=== PATIENT | female | born 1975 | race Caucasian/White ===

== ENCOUNTER 2017-05-31 17:51 | Emergency (ER) | payer MEDICAID, OTHER ==
[2017-05-31 18:02] VITALS: BP 127/83
[2017-05-31 18:38] LABS: CHLORIDE,CL 105 mmol/L (101-111); SODIUM,NA 136 mmol/L (135-145)
--- NOTE | 2017-05-31 19:30 | EDM.PDOC ---
ED HPI GENERAL MEDICAL PROBLEM - General Chief Complaint: Chest Pain Stated Complaint: BREATHING TROUBLES, [id number] Time Seen by Provider: 05/31/17 18:50 Source of Information: Reports: Patient History Limitations: Reports: No Limitations - History of Present Illness INITIAL COMMENTS - FREE TEXT/NARRATIVE: ED with c/o fever, feeling like sand in her chest" coughing and can't bring anything up. Smoker 3-4 cigarettes per day. Sinus congestion with pressure. Blowing out bloody mucus. Throat sore today Chest Pain Score (Numeric/FACES): 4 - Related Data Allergies Allergy/AdvReac Type Severity Reaction Status Date / Time iron sucrose complex Allergy Severe Anaphylactic Verified 05/31/17 17:57 [From Venofer] Shock acetaminophen [From Midrin] Allergy Chest Verified 05/31/17 17:57 Tightness dichloralphenazone Allergy Chest Verified 05/31/17 17:57 [From Midrin] Tightness iron Allergy Anaphylactic Verified 05/31/17 17:57 Shock isometheptene mucate Allergy Chest Verified 05/31/17 17:57 [From Midrin] Tightness Sulfa (Sulfonamide Allergy Hives Verified 05/31/17 17:57 Antibiotics) Home Meds: Home Meds Citalopram Hydrobromide [Celexa] 40 mg PO DAILY #30 08/07/15 [Rx] buPROPion [Wellbutrin] 75 mg PO DAILY 03/28/16 [History] Gabapentin [Neurontin] 600 mg pe PO TID 05/31/17 [History] Past Medical History Cardiovascular History: Reports: Heart Failure Other Cardiovascular History: CHF in the past Respiratory History: Reports: None Gastrointestinal History: Reports: GERD Other OB/BYN History: 3 c-sections and a tubal ligation Musculoskeletal History: Reports: Arthritis, Back Pain, Chronic, Fracture, Fibromyalgia, Other (See Below) Other Musculoskeletal History: left ankle fracture Psychiatric History: Reports: Anxiety, Depression, Suicide Attempt - Past Surgical History Respiratory Surgical History: Reports: None GI Surgical History: Reports: Appendectomy Social & Family History - Family History Family Medical History: Noncontributory - Tobacco Use Smoking Status *Q: Current Every Day Smoker Years of Tobacco use: 29 Packs/Tins Daily: 0.3 Used Tobacco, but Quit: No Second Hand Smoke Exposure: Yes - Caffeine Use Caffeine Use: Reports: Coffee, Energy Drinks, Soda, Tea - Alcohol Use Days Per Week of Alcohol Use: 1 Number of Drinks Per Day: 1 Total Drinks Per Week: 1 - Recreational Drug Use Recreational Drug Use: No - Sexual History Sexual History: Reports: Sexually Active - Living Situation & Occupation Living situation: Reports: , with Family Occupation: Employed ED ROS GENERAL - Review of Systems Review Of Systems: ROS reveals no pertinent complaints other than HPI. ED EXAM, GENERAL - Physical Exam Exam: See Below Exam Limited By: No Limitations General Appearance: Alert, No Apparent Distress Eye Exam: Bilateral Eye: EOMI Ears: Normal External Exam Ear Exam: Bilateral Ear: TM Dull Nose: Normal Inspection Throat/Mouth: No: Normal Oropharynx (mild inflammation, no exudate) Head: Atraumatic, Normocephalic, Sinus Tenderness (frontal, maxillay and ethmoid ) Neck: Normal Inspection, Full Range of Motion, Lymphadenopathy (L), Lymphadenopathy (R) Respiratory/Chest: No Respiratory Distress, Lungs Clear, Normal Breath Sounds. No: Respiratory Distress Cardiovascular: Normal Peripheral Pulses, Regular Rate, Rhythm GI/Abdominal: Normal Bowel Sounds Neurological: Alert, Oriented, Normal Cognition Psychiatric: Normal Affect Skin Exam: Warm, Dry, Intact, Normal Color Course - Vital Signs Last Recorded V/S: Last Vital Signs Temp 97.8 F 05/31/17 17:59 Pulse 86 05/31/17 17:59 Resp 16 05/31/17 17:59 BP 127/83 05/31/17 17:59 Pulse Ox 99 05/31/17 17:59 - Orders/Labs/Meds Orders: Active Orders 24 hr Category Date Time Status EKG 12 Lead [EKG Documentation Completion] [RC] URGENT Care 05/31/17 18:14 Active CULTURE STREP A CONFIRMATION [RM] Stat Lab 05/31/17 19:10 Results STREP SCRN A RAPID W CULT CONF [] Stat Lab 05/31/17 19:10 Results Labs: Laboratory Tests 05/31/17 05/31/17 Range/Units 18:13 18:13 WBC 8.7 (5.0-10.0) 10^3/uL RBC 4.32 (4.2-5.4) 10^6/uL Hgb 12.2 (12.0-16.0) g/dL Hct 37.0 (37.0-47.0) % MCV 85.6 D (80-100) fL MCH 28.2 (27.0-34.0) pg MCHC 33.0 (33.0-35.0) g/dL Plt Count 350 (150-450) 10^3/uL Neut % (Auto) 68.7 (42.2-75.2) % Lymph % (Auto) 21.5 (20.5-50.1) % Russell % (Auto) 8.0 (2-8) % Eos % (Auto) 1.5 (1.0-3.0) % Baso % (Auto) 0.3 (0.0-1.0) % Sodium 136 (135-145) mmol/L Potassium 3.4 L (3.6-5.0) mmol/L Chloride 105 (101-111) mmol/L Carbon Dioxide 23.0 (21.0-31.0) mmol/L Anion Gap 11.4 BUN 11 (7-18) mg/dL Creatinine 0.9 (0.6-1.3) mg/dL Est Cr Clr Drug Dosing 77.01 mL/min Estimated GFR (MDRD) > 60 BUN/Creatinine Ratio 12.22 Glucose 92 (74-105) mg/dL Calcium 8.3 L (8.4-10.2) mg/dl Total Bilirubin 0.5 (0.2-1.0) mg/dL AST 28 (10-42) IU/L ALT 25 (10-60) IU/L Alkaline Phosphatase 71 (42-121) IU/L Troponin I < 0.02 (0.00-0.02) ng/ml Total Protein 7.6 (6.7-8.2) g/dl Albumin 3.9 (3.2-5.5) g/dl Globulin 3.7 Albumin/Globulin Ratio 1.05 - Radiology Interpretation Free Text/Narrative:: CXR normal Departure - Departure Time of Disposition: 19:29 Disposition: Home, Self-Care 01 Condition: Good Clinical Impression: Bronchitis, Tobacco dependence Sinusitis Qualifiers: Sinusitis location: unspecified location Chronicity: acute Recurrence: non- recurrent Qualified Code(s): J01.90 - Acute sinusitis, unspecified - Discharge Information Instructions: Sinusitis, Adult, [id number] Additional Instructions: muccinex per label to aid in congestion albuterol inhaler 2 puffs every 4 hours as needed for cough/wheezing augmentin 875 one twice daily for 7 days follow in clinic 1 week if not improving urgent follow up if symptoms worsen with breathing difficulty - My Orders Last 24 Hours: My Active Orders 05/31/17 19:10 CULTURE STREP A CONFIRMATION [RM] Stat STREP SCRN A RAPID W CULT CONF [] Stat - Assessment/Plan Last 24 Hours: My Active Orders 05/31/17 19:10 CULTURE STREP A CONFIRMATION [] Stat STREP SCRN A RAPID W CULT CONF [] Stat
== END 2017-05-31 19:42 | disposition home or self-care (01) ==
LOC: DL.ED 17:51
DX: J40 Bronchitis, not specified as acute or chronic (principal); J01.90 Acute sinusitis, unspecified; F17.210 Nicotine dependence, cigarettes, uncomplicated; Z88.8 Allergy status to other drugs, medicaments and biological substances; Z88.2 Allergy status to sulfonamides; Z79.899 Other long term (current) drug therapy
CPT/HCPCS: 36415; 71045; 80053; 84484; 85025; 87081; 87430; 93005; 99284

== ENCOUNTER 2017-06-13 15:27 | Emergency (ER) | payer MEDICAID ==
[2017-06-13 16:17] VITALS: BP 152/87
[2017-06-13] MEDS ORDERED: Sodium Chloride 0.9% 10 ML Syringe FLUSH PRN (16:33)
[2017-06-13] MEDS ORDERED: Sodium Chloride 0.9% 1,000 ML IV ONE (16:34)
[2017-06-13 17:06] LABS: CHLORIDE,CL 105 mmol/L (101-111); SODIUM,NA 139 mmol/L (135-145)
[2017-06-13] MEDS ORDERED: Iopamidol 612 MG/ML 100 ML Bottle IVPUSH ONE (17:18)
[2017-06-13] MEDS ORDERED: Iopamidol 612 MG/ML 75 ML Bottle IVPUSH ONE (18:02)
[2017-06-13] MEDS ORDERED: HYDROmorphone 1 MG/ML Syringe IVPUSH ONE (18:49)
[2017-06-13] MEDS ORDERED: GI Cocktail Oral Solution 30 ML PO ONE (19:19)
[2017-06-13] MEDS ORDERED: Pantoprazole 40 MG Vial IVPUSH ONE (19:19)
--- NOTE | 2017-06-14 12:37 | EDM.PDOC ---
Scribed by Mireille Dai 06/13/17 [id number] for Debbi De Jesus NP ED HPI GENERAL MEDICAL PROBLEM - General Chief Complaint: Gastrointestinal Problem Stated Complaint: [id number] shooting stabbing stomach pain cant eat Time Seen by Provider: 06/13/17 16:19 Source of Information: Reports: Patient History Limitations: Reports: No Limitations - History of Present Illness INITIAL COMMENTS - FREE TEXT/NARRATIVE: Afia is a 42 yo female who presents to the ED today due to a two week history of lower abd pain. She reports her pain has been constant to her bilateral lower abd and progressively worsening. Her pain gets worse when she eats to the point that she has to vomit after eating to relieve some of the pain. Describes the pain as cramping and aching pain. She reports constant nausea. Has had diarrhea off and on. Relates that she has been having a headache and chills. Denies shortness of breath or chest pain. She does relate that she has had dysuria. Denies flank pain or vaginal discharge. Reports last BM was yesterday. 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: NSAIDS (Has been taking ibuprofen three times a day) - Related Data Allergies Allergy/AdvReac Type Severity Reaction Status Date / Time iron sucrose complex Allergy Severe Anaphylactic Verified 06/13/17 16:17 [From Venofer] Shock acetaminophen [From Midrin] Allergy Chest Verified 06/13/17 16:17 Tightness dichloralphenazone Allergy Chest Verified 06/13/17 16:17 [From Midrin] Tightness iron Allergy Anaphylactic Verified 06/13/17 16:17 Shock isometheptene mucate Allergy Chest Verified 06/13/17 16:17 [From Midrin] Tightness Sulfa (Sulfonamide Allergy Hives Verified 06/13/17 16:17 Antibiotics) Home Meds: Home Meds Citalopram Hydrobromide [Celexa] 40 mg PO DAILY #30 08/07/15 [Rx] buPROPion [Wellbutrin] 75 mg PO DAILY 03/28/16 [History] Gabapentin [Neurontin] 600 mg pe PO TID 05/31/17 [History] Past Medical History Cardiovascular History: Reports: Heart Failure Other Cardiovascular History: CHF in the past Respiratory History: Reports: None Gastrointestinal History: Reports: GERD Other OB/BYN History: 3 c-sections and a tubal ligation Musculoskeletal History: Reports: Arthritis, Back Pain, Chronic, Fracture, Fibromyalgia, Other (See Below) Other Musculoskeletal History: left ankle fracture Psychiatric History: Reports: Anxiety, Depression, Suicide Attempt - Past Surgical History Respiratory Surgical History: Reports: None GI Surgical History: Reports: Appendectomy Social & Family History - Family History Family Medical History: Noncontributory - Tobacco Use Smoking Status *Q: Current Every Day Smoker Years of Tobacco use: 29 Packs/Tins Daily: 0.3 Used Tobacco, but Quit: No Second Hand Smoke Exposure: Yes - Caffeine Use Caffeine Use: Reports: Coffee, Energy Drinks, Soda, Tea - Alcohol Use Days Per Week of Alcohol Use: 1 Number of Drinks Per Day: 1 Total Drinks Per Week: 1 - Recreational Drug Use Recreational Drug Use: No - Sexual History Sexual History: Reports: Sexually Active - Living Situation & Occupation Living situation: Reports: , with Family Occupation: Employed ED ROS GENERAL - Review of Systems Review Of Systems: ROS reveals no pertinent complaints other than HPI. ED EXAM, GI/ABD - Physical Exam Exam: See Below Exam Limited By: No Limitations General Appearance: Alert, Mild Distress, Obese Eyes: Bilateral: Normal Appearance Ears: Hearing Grossly Normal Nose: Normal Inspection Throat/Mouth: Normal Inspection, Normal Oropharynx Head: Atraumatic, Normocephalic Neck: Normal Inspection, Supple Respiratory/Chest: No Respiratory Distress, Lungs Clear, Normal Breath Sounds, No Accessory Muscle Use Cardiovascular: Normal Peripheral Pulses, Regular Rate, Rhythm, No Gallop, No Murmur, No Rub GI/Abdominal Exam: Normal Bowel Sounds, Soft, No Organomegaly, No Mass, Other ( Pain on palpation to bilateral lower quadrants ) (Female) Exam: Deferred Rectal (Female) Exam: Deferred Back Exam: Normal Inspection, Full Range of Motion Extremities: Normal Inspection, Normal Range of Motion Neurological: Alert, Oriented, CN II-XII Intact Psychiatric: Normal Affect, Normal Mood Skin Exam: Warm, Dry, No Rash Course - Vital Signs Last Recorded V/S: Last Vital Signs Temp 97.8 F 06/13/17 16:13 Pulse 61 06/13/17 16:13 Resp 16 06/13/17 16:13 BP 152/87 H 06/13/17 16:13 Pulse Ox 100 06/13/17 16:13 - Orders/Labs/Meds Orders: Active Orders 24 hr Category Date Time Status Peripheral IV Care [RC] . DIRECTED Care 06/13/17 16:34 Active Peripheral IV Insertion Adult [OM.PC] Stat Oth 06/13/17 16:33 Ordered Labs: Laboratory Tests 06/13/17 06/13/17 06/13/17 Range/Units 16:05 16:05 16:05 WBC (5.0-10.0) 10^3/uL RBC (4.2-5.4) 10^6/uL Hgb (12.0-16.0) g/dL Hct (37.0-47.0) % MCV (80-100) fL MCH (27.0-34.0) pg MCHC (33.0-35.0) g/dL Plt Count (150-450) 10^3/uL Neut % (Auto) (42.2-75.2) % Lymph % (Auto) (20.5-50.1) % Price % (Auto) (2-8) % Eos % (Auto) (1.0-3.0) % Baso % (Auto) (0.0-1.0) % Sodium (135-145) mmol/L Potassium (3.6-5.0) mmol/L Chloride (101-111) mmol/L Carbon Dioxide (21.0-31.0) mmol/L Anion Gap BUN (7-18) mg/dL Creatinine (0.6-1.3) mg/dL Est Cr Clr Drug Dosing mL/min Estimated GFR (MDRD) BUN/Creatinine Ratio Glucose (74-105) mg/dL Calcium (8.4-10.2) mg/dl Total Bilirubin (0.2-1.0) mg/dL AST (10-42) IU/L ALT (10-60) IU/L Alkaline Phosphatase (42-121) IU/L Total Protein (6.7-8.2) g/dl Albumin (3.2-5.5) g/dl Globulin Albumin/Globulin Ratio Amylase (28-100) U/L Lipase (22-51) U/L Urine Color Dark yellow (YELLOW) Urine Appearance Turbid (CLEAR) Urine pH 7.0 (5.0-9.0) Ur Specific B[place] 1.025 (1.005-1.030) Urine Protein 30 H (NEGATIVE) Urine Glucose (UA) Negative (NEGATIVE) Urine Ketones Negative (NEGATIVE) Urine Occult Blood Small H (NEGATIVE) Urine Nitrite Negative (NEGATIVE) Urine Bilirubin Small H (NEGATIVE) Urine Urobilinogen 0.2 (0.2-1.0) mg/dL Ur Leukocyte Esterase Negative (NEGATIVE) Urine RBC 10-20 H /HPF Urine WBC 0-5 (0-5/HPF) /HPF Ur Epithelial Cells Moderate H /HPF Amorphous Sediment Moderate H (0/HPF) /HPF Urine Bacteria Rare (0-FEW/HPF) /HPF Fine Granular Casts Few H (0/LPF) /LPF Urine Mucus Few H /LPF Urine HCG, Qual Negative Urine Opiates Screen Positive H (NEGATIVE) Ur Oxycodone Screen Positive H (NEGATIVE) Urine Methadone Screen Negative (NEGATIVE) Ur Barbiturates Screen Negative (NEGATIVE) U Tricyclic Antidepress Negative (NEGATIVE) Ur Phencyclidine Scrn Negative (NEGATIVE) Ur Amphetamine Screen Negative (NEGATIVE) U Methamphetamines Scrn Negative (NEGATIVE) Urine MDMA Screen Negative (NEGATIVE) U Benzodiazepines Scrn Negative (NEGATIVE) Urine Cocaine Screen Negative (NEGATIVE) U Marijuana (THC) Screen Negative (NEGATIVE) 06/13/17 06/13/17 Range/Units 16:41 16:41 WBC 6.6 (5.0-10.0) 10^3/uL RBC 4.08 L (4.2-5.4) 10^6/uL Hgb 11.3 L (12.0-16.0) g/dL Hct 34.6 L (37.0-47.0) % MCV 84.8 (80-100) fL MCH 27.7 (27.0-34.0) pg MCHC 32.7 L (33.0-35.0) g/dL Plt Count 366 (150-450) 10^3/uL Neut % (Auto) 54.6 (42.2-75.2) % Lymph % (Auto) 37.2 (20.5-50.1) % Price % (Auto) 6.5 (2-8) % Eos % (Auto) 1.4 (1.0-3.0) % Baso % (Auto) 0.3 (0.0-1.0) % Sodium 139 (135-145) mmol/L Potassium 3.4 L (3.6-5.0) mmol/L Chloride 105 (101-111) mmol/L Carbon Dioxide 27.0 (21.0-31.0) mmol/L Anion Gap 10.4 BUN 13 (7-18) mg/dL Creatinine 0.7 (0.6-1.3) mg/dL Est Cr Clr Drug Dosing 99.01 mL/min Estimated GFR (MDRD) > 60 BUN/Creatinine Ratio 18.57 Glucose 85 (74-105) mg/dL Calcium 8.7 (8.4-10.2) mg/dl Total Bilirubin 0.3 (0.2-1.0) mg/dL AST 15 (10-42) IU/L ALT 14 (10-60) IU/L Alkaline Phosphatase 54 (42-121) IU/L Total Protein 7.0 (6.7-8.2) g/dl Albumin 3.8 (3.2-5.5) g/dl Globulin 3.2 Albumin/Globulin Ratio 1.19 Amylase 28 (28-100) U/L Lipase 12 L (22-51) U/L Urine Color (YELLOW) Urine Appearance (CLEAR) Urine pH (5.0-9.0) Ur Specific Bally (1.005-1.030) Urine Protein (NEGATIVE) Urine Glucose (UA) (NEGATIVE) Urine Ketones (NEGATIVE) Urine Occult Blood (NEGATIVE) Urine Nitrite (NEGATIVE) Urine Bilirubin (NEGATIVE) Urine Urobilinogen (0.2-1.0) mg/dL Ur Leukocyte Esterase (NEGATIVE) Urine RBC /HPF Urine WBC (0-5/HPF) /HPF Ur Epithelial Cells /HPF Amorphous Sediment (0/HPF) /HPF Urine Bacteria (0-FEW/HPF) /HPF Fine Granular Casts (0/LPF) /LPF Urine Mucus /LPF Urine HCG, Qual Urine Opiates Screen (NEGATIVE) Ur Oxycodone Screen (NEGATIVE) Urine Methadone Screen (NEGATIVE) Ur Barbiturates Screen (NEGATIVE) U Tricyclic Antidepress (NEGATIVE) Ur Phencyclidine Scrn (NEGATIVE) Ur Amphetamine Screen (NEGATIVE) U Methamphetamines Scrn (NEGATIVE) Urine MDMA Screen (NEGATIVE) U Benzodiazepines Scrn (NEGATIVE) Urine Cocaine Screen (NEGATIVE) U Marijuana (THC) Screen (NEGATIVE) Guiac stool: NEGATIVE Meds: Medications Discontinued Medications Generic Name Dose Route Start Last Admin Trade Name Freq PRN Reason Stop Dose Admin Al Hydroxide/Mg Hydroxide 30 ml 06/13/17 19:19 06/13/17 19:24 Gi Cocktail PO 06/13/17 19:20 30 ml ONETIME ONE Administration Hydromorphone HCl 0.5 mg 06/13/17 18:49 06/13/17 19:15 Dilaudid IVPUSH 06/13/17 18:50 0.5 mg ONETIME ONE Administration Sodium Chloride 1,000 mls @ 175 mls/hr 06/13/17 16:34 06/13/17 19:26 Normal Saline IV 06/13/17 22:16 999 mls/hr .BOLUS ONE Infusion Iopamidol 100 ml 06/13/17 17:18 Isovue-300 (61%) IVPUSH 06/13/17 17:19 ONETIME ONE Iopamidol 75 ml 06/13/17 18:02 06/13/17 18:03 Isovue-300 (61%) IVPUSH 06/13/17 18:03 75 ml ONETIME ONE Administration Pantoprazole Sodium 40 mg 06/13/17 19:19 06/13/17 19:24 Protonix Iv IVPUSH 06/13/17 19:20 40 mg ONETIME ONE Administration Sodium Chloride 10 ml 06/13/17 16:33 06/13/17 16:52 Saline Flush FLUSH 10 ml ASDIRECTED PRN Administration Keep Vein Open Departure - Departure Time of Disposition: 19:18 Disposition: Admitted As Inpatient 67 Condition: Fair Clinical Impression: Vomiting, Abdominal pain, Peptic ulcer - Discharge Information Instructions: Peptic Ulcer, [id number], Nausea and Vomiting, Adult, Easy-to- Read Referrals: PCP,Unobtain [Ordering Only Provider] - Forms: ED Department Discharge Additional Instructions: Drink plenty of water RX: Pepcid 40mg orally daily at bedtime. Follow up with your primary care facility for a referral to Gastroenterology - My Orders Last 24 Hours: My Active Orders 06/13/17 16:33 Peripheral IV Insertion Adult [OM.PC] Stat 06/13/17 16:34 Peripheral IV Care [RC] . DIRECTED - Assessment/Plan Last 24 Hours: My Active Orders 06/13/17 16:33 Peripheral IV Insertion Adult [OM.PC] Stat 06/13/17 16:34 Peripheral IV Care [RC] . DIRECTED I have read and agree with the documentation that has been completed regarding this visit. By signing this record, I attest that the documentation was completed in my physical presence and is an accurate record of the encounter.
== END 2017-06-13 19:55 | disposition critical access hospital (66) ==
LOC: DL.ED 15:27
DX: K27.9 Peptic ulcer, site unspecified, unspecified as acute or chronic, without hemorrhage or perforation (principal); I50.9 Heart failure, unspecified; F17.210 Nicotine dependence, cigarettes, uncomplicated; Z88.8 Allergy status to other drugs, medicaments and biological substances; Z88.2 Allergy status to sulfonamides; Z79.899 Other long term (current) drug therapy
CPT/HCPCS: 36415; 74177; 80053; 80305; 81001; 81025; 82150; 82272; 83690; 85025; 96361; 96374; 96375; 99284; A9270-GY; C9113; J1170; J7030; J7050; Q9967

== ENCOUNTER 2017-10-02 21:44 | Emergency (ER) | payer MEDICAID ==
[2017-10-02] MEDS ORDERED: Cyclobenzaprine 10 MG Tab PO ONE (21:45)
[2017-10-02] MEDS ORDERED: traMADol 50 MG Tab PO ONE (21:45)
[2017-10-02 22:43] LABS: CHLORIDE,CL 109 mmol/L (101-111); SODIUM,NA 138 mmol/L (135-145)
[2017-10-02] MEDS ORDERED: Ketorolac 30 MG/ML SDV IVPUSH ONE (23:04)
[2017-10-02 23:24] VITALS: BP 103/60
--- NOTE | 2017-10-02 23:30 | EDM.PDOC ---
ED HPI GENERAL MEDICAL PROBLEM - General Chief Complaint: Respiratory Problem Stated Complaint: [id number] SHARP PAIN IN CHEST TO BACK-DIFFICULTY MARISA Time Seen by Provider: 10/02/17 22:00 Source of Information: Reports: Patient History Limitations: Reports: No Limitations - History of Present Illness INITIAL COMMENTS - FREE TEXT/NARRATIVE: ED with family with c/o sharp chest pain in back radiating to chest. 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 No injury noted, pain worse with movement. Started one week ago, worsening since morning, has been trying tylenol and ibuprofen without relief. Nausea at times from pain. No fever or chills. Hurts to take deep breath. Upper Back Pain Score (Numeric/FACES): 8 - Related Data Allergies Allergy/AdvReac Type Severity Reaction Status Date / Time iron sucrose complex Allergy Severe Anaphylactic Verified 10/02/17 22:33 [From Venofer] Shock acetaminophen [From Midrin] Allergy Chest Verified 10/02/17 22:33 Tightness dichloralphenazone Allergy Chest Verified 10/02/17 22:33 [From Midrin] Tightness iron Allergy Anaphylactic Verified 10/02/17 22:33 Shock isometheptene mucate Allergy Chest Verified 10/02/17 22:33 [From Midrin] Tightness Sulfa (Sulfonamide Allergy Hives Verified 10/02/17 22:33 Antibiotics) Home Meds: Home Meds Citalopram Hydrobromide [Celexa] 40 mg PO DAILY #30 08/07/15 [Rx] buPROPion [Wellbutrin] 75 mg PO DAILY 03/28/16 [History] Gabapentin [Neurontin] 600 mg pe PO TID 05/31/17 [History] Past Medical History HEENT History: Reports: Impaired Vision Cardiovascular History: Reports: Heart Failure Other Cardiovascular History: CHF in the past Respiratory History: Reports: None Gastrointestinal History: Reports: GERD 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 Grandmother's heart stopped on mom's side. Endocrine/Metabolic: Reports: Diabetes, type II Other Endocrine/Metabolic Family History: Both mom and dad and a brother. - Tobacco Use Smoking Status *Q: Current Every Day Smoker Years of Tobacco use: 12 Packs/Tins Daily: 0.1 - Caffeine Use Caffeine Use: Reports: Coffee, Energy Drinks, Soda - Recreational Drug Use Recreational Drug Use: No - Sexual History Sexual History: Reports: Sexually Active - Living Situation & Occupation Living situation: Reports: , with Family Occupation: Employed ED ROS GENERAL - Review of Systems Review Of Systems: ROS reveals no pertinent complaints other than HPI. ED EXAM, GENERAL - Physical Exam Exam: See Below Exam Limited By: No Limitations General Appearance: Alert, Moderate Distress Eye Exam: Bilateral Eye: EOMI, PERRL Ear Exam: Bilateral Ear: TM normal Nose: Normal Inspection Throat/Mouth: Normal Inspection Head: Atraumatic, Normocephalic Neck: Normal Inspection Respiratory/Chest: No Respiratory Distress, Lungs Clear, Normal Breath Sounds Cardiovascular: Normal Peripheral Pulses, Regular Rate, Rhythm GI/Abdominal: Normal Bowel Sounds, Soft Back Exam: Muscle Spasm (below right scapula), Other (pain worse with palpation or movement) Extremities: Normal Inspection Neurological: Alert, Oriented, Normal Cognition Psychiatric: Anxious Skin Exam: Warm, Dry, Intact, Normal Color Course - Vital Signs Last Recorded V/S: Last Vital Signs Temp 98.2 F 10/02/17 23:23 Pulse 73 10/02/17 23:23 Resp 14 10/02/17 23:23 BP 103/60 10/02/17 23:23 Pulse Ox 98 10/02/17 23:23 - Orders/Labs/Meds Labs: Laboratory Tests 10/02/17 10/02/17 10/02/17 Range/Units 22:15 22:15 22:15 WBC 9.4 (5.0-10.0) 10^3/uL RBC 3.81 L (4.2-5.4) 10^6/uL Hgb 10.5 L (12.0-16.0) g/dL Hct 32.6 L (37.0-47.0) % MCV 85.6 (80-100) fL MCH 27.6 (27.0-34.0) pg MCHC 32.2 L (33.0-35.0) g/dL Plt Count 277 D (150-450) 10^3/uL Neut % (Auto) 52.3 (42.2-75.2) % Lymph % (Auto) 39.4 (20.5-50.1) % [place] % (Auto) 6.4 (2-8) % Eos % (Auto) 1.7 (1.0-3.0) % Baso % (Auto) 0.2 (0.0-1.0) % D-Dimer, Quantitative 308 (0-400) ng/mL Sodium 138 (135-145) mmol/L Potassium 3.5 L (3.6-5.0) mmol/L Chloride 109 (101-111) mmol/L Carbon Dioxide 22.0 (21.0-31.0) mmol/L Anion Gap 10.5 BUN 16 (7-18) mg/dL Creatinine 0.9 (0.6-1.3) mg/dL Est Cr Clr Drug Dosing 78.50 mL/min Estimated GFR (MDRD) > 60 BUN/Creatinine Ratio 17.77 Glucose 104 (74-105) mg/dL Calcium 8.1 L (8.4-10.2) mg/dl Total Bilirubin 0.5 (0.2-1.0) mg/dL AST 14 (10-42) IU/L ALT 15 (10-60) IU/L Alkaline Phosphatase 67 (42-121) IU/L Troponin I < 0.02 (0.00-0.02) ng/ml Total Protein 6.3 L (6.7-8.2) g/dl Albumin 3.4 (3.2-5.5) g/dl Globulin 2.9 Albumin/Globulin Ratio 1.17 Meds: Medications Discontinued Medications Generic Name Dose Route Start Last Admin Trade Name Freq PRN Reason Stop Dose Admin Cyclobenzaprine HCl Confirm 10/02/17 23:37 10/03/17 00:19 Flexeril Administered 10/02/17 23:38 Not Given Dose 10 mg .ROUTE .STK-MED ONE Hydromorphone HCl 0.5 mg 10/02/17 23:44 10/02/17 23:48 Dilaudid IVPUSH 10/02/17 23:45 0.5 mg ONETIME ONE Administration Ketorolac Tromethamine 30 mg 10/02/17 23:04 10/02/17 23:18 Toradol IVPUSH 10/02/17 23:05 30 mg ONETIME ONE Administration Orphenadrine Citrate 60 mg 10/02/17 23:05 10/02/17 23:21 Norflex IM 10/02/17 23:06 60 mg ONETIME ONE Administration Tramadol HCl Confirm 10/02/17 23:37 10/03/17 00:08 Ultram Administered 10/02/17 23:38 Not Given Dose 100 mg .ROUTE .STK-MED ONE Departure - Departure Time of Disposition: 23:28 Disposition: Home, Self-Care 01 Condition: Good (muscle spasm) Clinical Impression: Muscle spasm - Discharge Information Instructions: Muscle Cramps and Spasms, [id number] Referrals: Camacho Pierson MD [Primary Care Provider] - Forms: ED Department Discharge Additional Instructions: flexeril 10mg one every 8 hours as needed #10 tramadol 50 one every 6 hours as needed severe pain #2 heat or ice to area, follow up if not improving avoid repetitive movements
[2017-10-02] MEDS ORDERED: traMADol 50 MG Tab ONE (23:37)
[2017-10-02] MEDS ORDERED: Cyclobenzaprine 10 MG Tab ONE (23:37)
[2017-10-02] MEDS ORDERED: HYDROmorphone 0.5 MG/0.5 ML Syringe IVPUSH ONE (23:44)
--- NOTE | 2017-10-06 12:52 | EKG ---
10/02/2017 - ESTEBAN ROB - FINDINGS: This 12-lead EKG shows a normal sinus rhythm with a ventricular rate of 85. Normal axis and intervals. No acute ST-segment or T-wave changes. [facility] /[id number]
== END 2017-10-03 00:08 | disposition home or self-care (01) ==
LOC: DL.ED 21:44
DX: M62.830 Muscle spasm of back (principal); I50.9 Heart failure, unspecified; K21.9 Gastro-esophageal reflux disease without esophagitis; F17.210 Nicotine dependence, cigarettes, uncomplicated; Z88.8 Allergy status to other drugs, medicaments and biological substances; Z88.6 Allergy status to analgesic agent; Z88.2 Allergy status to sulfonamides; Z79.899 Other long term (current) drug therapy
CPT/HCPCS: 36415; 71046; 80053; 84484; 85025; 85379; 93005; 96372; 96374; 96375; 99285; A9270; J1170; J1885; J2360

== ENCOUNTER 2021-10-06 11:50 | Emergency (ER) | payer MEDICAID, BC ==
[2021-10-06 12:56] VITALS: BP 174/108; PULSE 82
[2021-10-06 13:50] LABS: AMPHETAMINES,URINE NEGATIVE (NEGATIVE); BARBITURATES,URINE NEGATIVE (NEGATIVE); BENZODIAZEPINE,URINE NEGATIVE (NEGATIVE); MDMA (ECSTASY), URINE NEGATIVE (NEGATIVE); METHADONE,URINE NEGATIVE (NEGATIVE); METHAMPHETAMINES,URINE NEGATIVE (NEGATIVE); OPIATES,URINE NEGATIVE (NEGATIVE); OXYCODONE,URINE NEGATIVE (NEGATIVE); PHENCYCLIDINE,URINE NEGATIVE (NEGATIVE); TCA,URINE NEGATIVE (NEGATIVE)
[2021-10-06] MEDS ORDERED: Sodium Chloride 0.9% 10 ML Syringe FLUSH PRN (14:49)
[2021-10-06 15:15] LABS: ANION GAP 12.4 mEq/L (7-13); CHLORIDE,CL 109 mmol/L (98-107); SODIUM,NA 142 mmol/L (136-145)
[2021-10-06 15:27] LABS: ESTIMATED GFR 109 mL/min (>=60)
[2021-10-06] MEDS ORDERED: Ketorolac 30 MG/ML SDV IVPUSH ONE (15:30)
== END 2021-10-06 15:59 | disposition home or self-care (01) ==
LOC: DL.ED 11:50
DX: R14.0 Abdominal distension (gaseous) (principal); D50.8 Other iron deficiency anemias; F17.210 Nicotine dependence, cigarettes, uncomplicated; Z88.8 Allergy status to other drugs, medicaments and biological substances; Z88.2 Allergy status to sulfonamides; Z20.822 Contact with and (suspected) exposure to COVID-19
CPT/HCPCS: 36415; 80053; 80305; 81001; 81025; 82728; 83540; 83605; 83690; 83735; 84443; 85025; 86140; 87635; 96374; 99284; J1885; J3490; U0002

== ENCOUNTER 2021-11-05 02:40 | Emergency (ER) | payer BC, MEDICAID ==
[2021-11-05] MEDS ORDERED: Famotidine 20 MG/2 ML SDV IVPUSH ONE (02:52)
[2021-11-05] MEDS ORDERED: HYDROmorphone 1 MG/ML Syringe IVPUSH ONE (02:52)
[2021-11-05] MEDS ORDERED: Sodium Chloride 0.9% 1,000 ML IV ONE (02:52)
[2021-11-05] MEDS ORDERED: Ondansetron 4 MG/2 ML SDV IVPUSH ONE (02:52)
[2021-11-05] MEDS ORDERED: Iopamidol 612 MG/ML 100 ML Bottle IVPUSH ONE (03:25)
[2021-11-05 03:35] LABS: ANION GAP 13.1 mEq/L (7-13); CHLORIDE,CL 106 mmol/L (98-107); SODIUM,NA 140 mmol/L (136-145)
[2021-11-05 03:40] LABS: ESTIMATED GFR 105 mL/min (>=60)
[2021-11-05] MEDS ORDERED: HYDROmorphone 0.5 MG/0.5 ML Syringe IVPUSH ONE (04:22)
[2021-11-05] MEDS ORDERED: Dicyclomine 10 MG Cap PO ONE (05:21)
[2021-11-05 05:38] VITALS: BP 111/68; PULSE 80
== END 2021-11-05 05:44 | disposition home or self-care (01) ==
LOC: DL.ED 02:40
DX: K52.9 Noninfective gastroenteritis and colitis, unspecified (principal); Z88.6 Allergy status to analgesic agent; Z88.8 Allergy status to other drugs, medicaments and biological substances; Z88.2 Allergy status to sulfonamides; Z79.899 Other long term (current) drug therapy; Z90.49 Acquired absence of other specified parts of digestive tract
CPT/HCPCS: 36415; 74177; 80053; 81001; 82150; 83605; 83690; 84703; 85025; 96361; 96374; 96375; 96376; 99284-25; A9270-GY; J1170; J2405; J3490; J7030; Q9967